=== PATIENT | female | born 2000 | race Caucasian/White ===

== ENCOUNTER → 2019-08-10 | Outpatient (CLI) | payer BC, OTHER ==
[~2019-08-10] MED LIST: ISOVUE-370 76% 100ML VIAL (Q9967) As Ordered ONE
--- NOTE | 2019-08-11 02:56 | REP ---
Clinical: IUD evaluation. Technique: Transabdominal pelvic ultrasound followed by transvaginal examination for better evaluation of the endometrium and adnexa. Findings: Normal anteverted uterus measures 9.1 x 3.3 x 4.8 cm. Endometrial complex measures 2.7 mm thickness and IUD is identified in central satisfactory position. The bilateral ovaries are normal in appearance. Right ovary measures 3.3 x 2.5 x 2.9 cm. Left ovary measures 3.3 x 2.0 x 2.2 cm. No pelvic fluid or adnexal mass lesion. Bladder is grossly unremarkable and currently measures 8.9 x 3.3 x 5.1 cm. Impression: Normal pelvic ultrasound. IUD identified in satisfactory position. Electronically Signed by César Weller MD 08/11/2019 02:47 A
== END ==
LOC: M RAD 14:59
PROVIDERS: ATTEND Physician Assistant
DX: T83.32XA Displacement of intrauterine contraceptive device, initial encounter (principal)

== ENCOUNTER → 2020-05-21 | Outpatient (REF) | payer OTHER ==
[~2020-05-21] MED LIST changes: +ACET-683 PO; +IBUP80TA PO; -ISOVUE-370 76% 100ML VIAL (Q9967) As Ordered ONE; +PRENTAB9 PO
== END ==
LOC: M SFHCWAGY 17:05
PROVIDERS: ATTEND Advanced Practice Midwife
DX: Z3A.36 36 weeks gestation of pregnancy (principal)
CPT/HCPCS: 87081; G0463

== ENCOUNTER 2020-05-28 04:20 | Outpatient (CLI) | payer OTHER ==
[2020-05-28 04:40] VITALS: BP 133/79
[2020-05-28 07:22] VITALS: BP 120/72
[2020-05-28 09:14] VITALS: BP 119/73
--- NOTE | 2020-05-28 10:35 | IPNPDOC ---
Obstetrical Progress Note Date of Service May 28, 2020 Subjective 20yo at 37+2 weeks EGA. Presents for a labor check. Reports frequent, painful uterine contractions. No loss of fluid or vaginal bleeding. Reports regular, frequent movement. ROS: No CHOU, visual changes, RUQ pain, sob, cp, n/v/f/c. complications: none PMH: none SH: tonsillectomy OB: Term, uncomplicated x 1 CHOIR DIRECTOR: no STI Meds: PNV All: NKDA O: Normotensive, normal HR, afebrile Abd: soft,nt,nd, no fundal tenderness SVE: 2cm, 90%, -3, cephalic, intact, small amount of bloody show; minimal change management administrator several hours. EFM: Sudhir , Reactive Conley: contractions every 3-5min; palpated as mild. A/P: 20yo at 37+2 weeks EGA. Latent labor; no evidence of active labor or ROM. Reassuring maternal and status. -Routine third trimester precautions given. -Follow up in office as scheduled. Dioni Page DO FACOG. Objective Vital Signs Date Time Temp Pulse Resp B/P (MAP) Pulse Ox O2 Delivery O2 Flow Rate FiO2 05/28/20 09:14 126 16 119/73 (88) 05/28/20 07:22 98.7 NAGI PAGE DO May 28, 2020 10:35
== END 2020-05-28 10:35 | disposition home or self-care (01) ==
LOC: M LDO 04:20
PROVIDERS: ATTEND Advanced Practice Midwife
DX: O62.0 Primary inadequate contractions (principal); Z3A.37 37 weeks gestation of pregnancy
CPT/HCPCS: 59025; G0378; G0463

== ENCOUNTER 2020-05-31 17:38 | Inpatient (IN) | payer OTHER ==
[~2020-05-31] VITALS: Ht 165.1 cm; Wt 79.1 kg
[2020-05-31] MEDS ORDERED: PRENTAB9 PO (17:52)
[2020-05-31] MEDS ORDERED: BENZOCAINE 20% HEMORRHOIDAL OINTMENT 28GM TUBE TOP PRN (18:45)
[2020-05-31] MEDS ORDERED: METHYLERGONOVINE MALEATE 0.2 MG/ML VIAL (J2210) IM ONE (18:45)
[2020-05-31] MEDS ORDERED: ANUSOL HC CREAM 30GM TOP PRN (18:45)
[2020-05-31] MEDS ORDERED: ACETAMINOPHEN TAB 650MG DOSE (2X325MG) PO PRN (18:45)
[2020-05-31] MEDS ORDERED: DOCUSATE SODIUM 100 MG CAP PO PRN (18:45)
[2020-05-31] MEDS ORDERED: MOM 30ML SUSPENSION UDC PO PRN (18:45)
[2020-05-31] MEDS ORDERED: OXYTOCIN INJ 10 UNITS/ML VIAL (J2590) IM ONE (18:45)
[2020-05-31] MEDS ORDERED: RHOGAM 300 MCG (1500 IU) INJ (J2790) IM SCH (18:45)
[2020-05-31] MEDS ORDERED: MEASLES,MUMPS,RUBELLA VACCINE INJ (MMR-II) (90707) SC SCH (18:45)
[2020-05-31] MEDS ORDERED: IBUPROFEN 600MG TAB PO PRN (18:45)
--- NOTE | 2020-05-31 18:50 | HPEPDOC ---
Obstetrical History & Physical General Date of Admission May 31, 2020 at 17:46 History of Present Illness Chief Complaint: Contractions, term, LOF, term Information Provided By: Patient Age: 20 : 2 Term: 1 Pre-term: 0 Abortions: 0 Livin Care Care: Good Care Dating Final EDC by: LMP EGA at Admission: 37 (+5) Antepartum Course Pre- weight (lbs.): 128 Admission Weight (lbs.): 174 Past Medical History Past Obstetrical History : Past Obstetrical History: Primgravida (2018) Type of Delivery: Spontaneous Vaginal Del. Sex of : Female (8#) Complications: No SIZE TESTER History: Abnormal Pap (HSIL) Past Medical History Surgical History: Denies/None Family History Significant Family History: No pertinent family hx Social History Marital Status: Family situation: Spouse/partner home Psychosocial History: No pertinent psych hx * Smoker: non-smoker Alcohol: Denies Drugs: denies Abuse Violence Screening Have you been hit/kicked/slapp: No Have you been sexually assault: No Allergies Coded Allergies: No Known Allergies (Unverified , 05/28/20) Medications Scheduled No.137/Iron/Folic Acd ( Vitamin Tablet) 1 Each Tablet, 1 TAB PO DAILY Physical Examination Physical Examination GENERAL: Alert and oriented times three. BREAST: . ABDOMEN: Gravid and non-tender to touch. FETUS: Is vertex (VTX) by sterile vaginal examination (SVE), fetus is vertex (VTX) by Taj. EFW 7.5-8# HEART RATE: Regular rate and rhythm. LUNGS: Clear to auscultation (CTA). EXTREMITIES: No edema. No clonus. Deep tendon reflexes (DTRs) + 2. Laboratory Data 24H [facility] Laboratory Tests 2 05/31/20 18:15: Serology Scanned Report Hepatitis B Testing Pertinent Laboratoy Data Blood Type: A+ RBC Antibody Screen: Negative HIV: Negative Hepatitis B: Negative Hepatitis C: Unknown Rapid Plasma Reagin: Nonreactive Rubella: Immune Chlamydia/Gonorrhea: Negative Group B Streptococcus: Negative Anatomy Ultrasound Ultrasound Date: Jan 17, 2020 Placenta Location: Posterior Normal Anatomy: Yes Placenta Previa: No Estimated Weight (grams): 243 (53%) Steroid Therapy Steroid Therapy: No Vaginal Examination Dilation: 8 cm Effacement: 100% Station: +1 Cervical Consistency: Soft Cervical Position: Anterior Presentation: Cephalic presentation Assessment Heart Rate (FHR): 135 Variability: Moderate Tocometer Contractions: Yes Frequency: regular, every 1-3 min. Strength: palpated as strong Assessment/Plan Assessment Piper is a 20-year-old (G)2 para (P)1-0-0-1 at 37+5 weeks. Presents to Labor and Delivery (L&D) in active labor. Reports contractions started 1714 when her water broke. Delivery imminent on arrival. Plan Admit and orient. Calender Roll Operator and consent. Diet: clear Group B Streptococcus (GBS) negative. Labs and intravenous (IV) per unit protocol. Prepare for delivery Anticipate normal spontaneous delivery (). C-S as appropriate. Zina Cook CNM May 31, 2020 18:50
--- NOTE | 2020-05-31 18:55 | DNPDOC ---
[facility] Delivery Note Delivery Note DATE OF DELIVERY: 05/31/2020 PREDELIVERY DIAGNOSIS: 37+5/7 weeks' gestation and labor. POST DELIVERY DIAGNOSIS: Delivered. PROCEDURE: Spontaneous vaginal delivery, precipitous delivery PROVIDER: Zina Cook CNM ANESTHESIA: None ESTIMATED BLOOD LOSS: 500 mL. FINDINGS: 7ounce 6 infant, 3340gm Male , Score 8/9, no nuchal cord. DELIVERY SUMMARY: Patient is a 20-year-old 2 now para 2-0-0-2 who was admitted to labor and delivery in active labor following spontaneous rupture of membranes. She progressed rapidly, delivering a viable male child MICHAEL with restitution to LOP @ 1802. Spontaneous respirations, transitioned on maternal abdomen. Cord doubly clamped and cut by FOB under my direction once pulsations ceased. Apgars 8/9. Placenta alston, intact with 3v cord @ 1811 followed by large gush of blood and trailing membranes. Fundus firmed with massage and IM pitocin 10units followed by methergine 0.2mg IM. EBL 500ml. Cervix, vagina and perineum intact. Sponge sharp and instrument count correct. Zina Cook CNM May 31, 2020 18:55
[2020-05-31 19:07] LABS: HEMATOCRIT 29.9 % (36.0-47.0); HEMOGLOBIN 9.1 g/dl (12.0-15.5); MEAN CORPUSCULAR HEMOGLOBIN 23.6 pg (27.0-33.0); MEAN CORPUSCULAR HGB CONC 30.4 g/dl (32.0-36.5); MEAN CORPUSCULAR VOLUME 77.7 fl (80.0-96.0); PLATELET COUNT, AUTOMATED 334 10^3/uL (150-450); RED BLOOD COUNT 3.85 10^6/uL (4.00-5.40); WHITE BLOOD COUNT 14.5 10^3/uL (4.0-10.0)
[2020-05-31 20:55] VITALS: BP 120/73
[2020-06-01] MEDS: METHYLERGONOVINE MALEATE 0.2 MG TAB PO SCH ×4 (00:02→17:29)
[2020-06-01] MEDS: IBUPROFEN 800 MG TAB PO PRN ×2 (05:20→20:21)
[2020-06-01 06:00] VITALS: BP 118/68
--- NOTE | 2020-06-01 07:02 | IPNPDOC ---
Text Note Date of Service The patient was seen on 06/01/20. NOTE PP #1 Feels well. Adequate pain management. Voiding. VSS, afebrile, normotensive Breasts soft, nipples intact Fundus firm, down 2FB Lochia rubra scant without odor Perineum intact PP #1 Routine care. Anticipate D/C in am VS,Fishbone, I+O VS, Fishbone, I+O Laboratory Tests 05/31/20 18:56 Vital Signs Date Time Temp Pulse Resp B/P (MAP) Pulse Ox O2 Delivery O2 Flow Rate FiO2 06/01/20 06:00 98.3 77 16 118/68 (85) I&O- Last 24 Hours up to 6 AM 06/01/20 06:00 Output Total 500 ml Balance -500 ml Zina Cook CNM Jun 01, 2020 07:02
[2020-06-01] MEDS: PRENATAL VITAMINS CHEWABLE TABLET PO SCH ×2 (07:33→08:39)
[2020-06-01] MEDS: ACETAMINOPHEN 500 MG TAB PO PRN ×2 (11:32→23:28)
[2020-06-01 18:08] VITALS: BP 111/76
[2020-06-02] MEDS ORDERED: METHYLERGONOVINE MALEATE 0.2 MG TAB PO PRN
[2020-06-02 06:00] VITALS: BP 115/71
[2020-06-02] MEDS: PRENATAL VITAMINS CHEWABLE TABLET PO SCH ×2 (08:31→09:00)
[2020-06-02] MEDS: IBUPROFEN 800 MG TAB PO PRN (08:32)
[2020-06-02] MEDS ORDERED: ACET-683 PO (08:51)
[2020-06-02] MEDS ORDERED: IBUP80TA PO (08:51)
[2020-06-02] MEDS: ACETAMINOPHEN 500 MG TAB PO PRN (13:18)
== END 2020-06-02 15:34 | disposition home or self-care (01) | DRG 807 ==
LOC: M LDO 17:38 → M LDI 17:46 → M OBS 20:50
PROVIDERS: ADMIT Advanced Practice Midwife; ATTEND Advanced Practice Midwife
PROC: 10E0XZZ Delivery of Products of Conception, External Approach (ICD-10-PCS; principal; 2020-05-31)
DX: O62.3 Precipitate labor (principal); Z37.0 Single live birth; Z3A.37 37 weeks gestation of pregnancy

== ENCOUNTER → 2020-11-13 | Outpatient (REF) | payer OTHER | LOC: M SFHCWAGY 09:54 | PROVIDERS: ATTEND Advanced Practice Midwife | DX: F52.6 Dyspareunia not due to a substance or known physiological condition (principal) | CPT/HCPCS: 87086; G0463 ==

== ENCOUNTER → 2020-12-16 | Outpatient (REF) | payer OTHER | LOC: M SFHCWAGY 13:23 | PROVIDERS: ATTEND Nurse Practitioner Women's Health | DX: R87.612 Low grade squamous intraepithelial lesion on cytologic smear of cervix (LGSIL) (principal); Z12.4 Encounter for screening for malignant neoplasm of cervix | CPT/HCPCS: 57454; 81025; 87624; 88305; G0123 ==

== ENCOUNTER → 2020-12-17 | Outpatient (REF) | payer OTHER ==
[2020-12-23 14:15] LABS: CHLAMYDIA DNA AMPLIFICATION NEGATIVE (NEGATIVE); GC DNA AMPLIFICATION NEGATIVE (NEGATIVE)
== END ==
LOC: M SFHCWAGY 16:52
PROVIDERS: ATTEND Advanced Practice Midwife
DX: Z11.3 Encounter for screening for infections with a predominantly sexual mode of transmission (principal); Z30.430 Encounter for insertion of intrauterine contraceptive device; Z32.02 Encounter for pregnancy test, result negative
CPT/HCPCS: 58300; 81025; 87491; 87591; J7298